=== PATIENT | male | born 1935 | race Caucasian/White ===

== ENCOUNTER 2017-06-28 09:51 | Emergency (ER) | payer MEDICARE ==
[~2017-06-28] VITALS: Ht 172.7 cm; Wt 79.4 kg
[~2017-06-28 09:51] MED LIST: LOSA50TA21 PO
--- NOTE | 2017-06-28 12:01 | NUR ---
pt was evaluated by dr yun. pt was d/c to home after er nd evaluation. d/c instructions given to the pt by dr ynu.
[2017-06-28 12:02] VITALS: BP 141/79
== END 2017-06-28 12:03 | disposition home or self-care (01) ==
LOC: ER 09:51
DX: S23.41XA Sprain of ribs, initial encounter (principal); I10 Essential (primary) hypertension; W18.39XA Other fall on same level, initial encounter; Y93.89 Activity, other specified; Y99.8 Other external cause status; Y92.89 Other specified places as the place of occurrence of the external cause
CPT/HCPCS: 74176; 99284; A4663

== ENCOUNTER 2017-11-25 16:05 | Emergency (ER) | payer MEDICARE ==
[~2017-11-25] VITALS: Ht 172.7 cm; Wt 80.7 kg
--- NOTE | 2017-11-25 17:14 | NUR ---
Pt c/o dry cough x 3 days, CP, "burning and pressure," started about 24 hours ago, hurts when coughing. Pt states he does get dizzy or SOB after exertion, but otherwise not. Pt denies SOB, dizziness, n/v, no other complaints, minimal distress noted. Pt placed on monitor, EKG -- given to .
[2017-11-25 17:35] LABS: BASOPHILS # (AUTO) 0.1 K/uL (0.0-8.0); BASOPHILS % (AUTO) 0.7 % (0.0-2.0); EOSINOPHILS # (AUTO) 0.2 K/uL (0.0-0.7); EOSINOPHILS % (AUTO) 2.5 % (0.0-7.0); HEMATOCRIT 40.3 % (36.7-47.1); HEMOGLOBIN 13.3 g/dL (12.5-16.3); LYMPHOCYTES # (AUTO) 1.7 K/uL (20.0-40.0); LYMPHOCYTES % (AUTO) 18.3 % (20.5-51.5); MEAN CORPUSCULAR HEMOGLOBIN 28.3 uug (23.8-33.4); MEAN CORPUSCULAR HGB CONC 33 g/dL (32.5-36.3); MEAN CORPUSCULAR VOLUME 85.9 fL (73.0-96.2); MONOCYTES # (AUTO) 1.3 K/uL (2.0-10.0); MONOCYTES % (AUTO) 13.9 % (0.0-11.0); NEUTROPHILS % (AUTO) 64.6 % (38.5-71.5); PLATELET COUNT (AUTO) 217 K/uL (152-348); RED BLOOD CELL COUNT(AUTO) 4.69 MIL/uL (4.06-5.63); WHITE BLOOD COUNT (AUTO) 9.4 K/uL (3.6-10.2)
[2017-11-25 17:43] LABS: CARBON DIOXIDE 28 mmol/L (21-32); CHLORIDE 98 mmol/L (98-107); GLUCOSE 105 mg/dL (74-106); POTASSIUM 4.4 mmol/L (3.5-5.1); UREA NITROGEN, BLOOD 10 mg/dL (7-18)
[2017-11-25 17:56] LABS: ALANINE AMINOTRANSFERASE 20 U/L (16-63); ALKALINE PHOSPHATASE 64 U/L (50-136); ASPARTATE AMINOTRANSFERASE 24 U/L (15-37); BILIRUBIN,DIRECT 0.1 mg/dL (0.0-0.2); BILIRUBIN,TOTAL 0.3 mg/dL (0.2-1.0); TOTAL PROTEIN, SERUM 7.8 g/dL (6.4-8.2)
--- NOTE | 2017-11-25 18:39 | NUR ---
Gave pt and son RX and d/c instructions, verbalized understanding.
[2017-11-25 18:43] VITALS: BP 158/97
== END 2017-11-25 18:44 | disposition home or self-care (01) ==
LOC: ER 16:07
DX: J20.9 Acute bronchitis, unspecified (principal); I10 Essential (primary) hypertension; I45.10 Unspecified right bundle-branch block; G47.30 Sleep apnea, unspecified
CPT/HCPCS: 36415; 70030-TC; 71045; 83605; 85025; 85730; 87040; 87400; 93005; A4663

== ENCOUNTER 2018-10-20 16:01 | Emergency (ER) | payer MEDICARE ==
[~2018-10-20] VITALS: Ht 172.7 cm; Wt 81.6 kg
[~2018-10-20 16:01] MED LIST changes: -LOSA50TA21 PO; +LOSA50TA39 PO
[2018-10-20] MEDS ORDERED: LET TOPICAL SOLUTION 8 ML UDC ONE (16:53)
[2018-10-20] MEDS ORDERED: LET TOPICAL SOLUTION 8 ML UDC TP ONE (17:00)
[2018-10-20] MEDS ORDERED: NEOMY/BACITRA/POLYMYXIN B OINT UD PACKET TP ONE ×2 (17:15→17:40)
[2018-10-20] MEDS ORDERED: ACETAMINOPHEN ES 500 MG TABLET ONE (17:41)
[2018-10-20] MEDS ORDERED: TDAP DIPH,PERTUSS,TET VAC/PF 0.5 ML DISP.SYRIN IM ONE ×2 (17:48→18:00)
--- NOTE | 2018-10-20 18:27 | NUR ---
Patient discharged to home in stable conditon. Written and verbal after care instructions given. Patient and pt's family verbalize understanding of instructions. Pt left ER accompained by family.
[2018-10-20 18:32] VITALS: BP 129/70
== END 2018-10-20 18:36 | disposition home or self-care (01) ==
LOC: ER 16:04
DX: S02.5XXA Fracture of tooth (traumatic), initial encounter for closed fracture (principal); S01.511A Laceration without foreign body of lip, initial encounter; S00.81XA Abrasion of other part of head, initial encounter; I10 Essential (primary) hypertension; G89.29 Other chronic pain; M25.559 Pain in unspecified hip; Z79.899 Other long term (current) drug therapy; W01.0XXA Fall on same level from slipping, tripping and stumbling without subsequent striking against object, initial encounter; Y93.89 Activity, other specified; Y92.89 Other specified places as the place of occurrence of the external cause; Y99.8 Other external cause status
CPT/HCPCS: 70450; 71101; 72125; 73521; 90715; A4217; A4663; A9150

== ENCOUNTER 2018-11-13 11:26 | Emergency (ER) | payer MEDICARE ==
[~2018-11-13] VITALS: Ht 167.6 cm; Wt 81.6 kg
--- NOTE | 2018-11-13 11:39 | NUR ---
pt walks in to er co coughing for 2 days, coarse voice this am and cp when coughing hard and deep. pt s/p fall on his [place] oct 20, seen and examined here in this er. pt son at bedside .
--- NOTE | 2018-11-13 13:10 | NUR ---
Patient discharged to home in stable conditon. Written and verbal after care instructions given. Patient verbalizes understanding of instructions.pt walks in steady gait, pt breathingnormally the whole er stay.
[2018-11-13 13:16] VITALS: BP 171/89
== END 2018-11-13 13:17 | disposition home or self-care (01) ==
LOC: ER 11:26
DX: J20.9 Acute bronchitis, unspecified (principal); J04.0 Acute laryngitis; R19.7 Diarrhea, unspecified; I10 Essential (primary) hypertension; Z79.899 Other long term (current) drug therapy
CPT/HCPCS: 71045; 93005; A4663

== ENCOUNTER 2019-07-10 14:16 | Emergency (ER) | payer MEDICARE, MEDICAID ==
[~2019-07-10] VITALS: Ht 175.3 cm; Wt 79.4 kg
--- NOTE | 2019-07-10 14:22 | NUR ---
PT IS A/OX4, BIB [id number], C/O MECHANICAL FALL AT A [id number]. PT STATES HE TRIPPED OVER A PARKING BLOCK AND LANDED FACE FIRST. PT DENIES LOC. PT PRESENTS W/ BLOOD ON THE UPPER LIP AND INSIDE THE UPPER LIP. UPON INSPECTION, MINOR LAC NOTED ON THE UPPER LIP WELL INSIDE THE UPPER LIP. NO ACTIVE BLEEDING INTO THE OROPHARYNX. VS WNL. PT DOES PRESENT W/ 3 BROKEN UPPER TEETH IN THE FRONT, BUT PT STATES HE'S HAD THOSE BROKEN TEETH. PT DENIES C/P, SOB, N/V/D, DIZZINESS, HEADACHE.
[2019-07-10] MEDS ORDERED: ASPIRIN PO (14:26)
[2019-07-10 14:57] LABS: BASOPHILS % (AUTO) 0.7 % (0.0-2.0); EOSINOPHILS # (AUTO) 0.2 K/uL (0.0-0.7); EOSINOPHILS % (AUTO) 2.1 % (0.0-7.0); HEMATOCRIT 40.1 % (36.7-47.1); HEMOGLOBIN 13.3 g/dL (12.5-16.3); LYMPHOCYTES # (AUTO) 1.9 K/uL (20.0-40.0); LYMPHOCYTES % (AUTO) 25.4 % (20.5-51.5); MEAN CORPUSCULAR HEMOGLOBIN 29.6 uug (23.8-33.4); MEAN CORPUSCULAR HGB CONC 33 g/dL (32.5-36.3); MEAN CORPUSCULAR VOLUME 89.2 fL (73.0-96.2); MONOCYTES # (AUTO) 0.6 K/uL (2.0-10.0); MONOCYTES % (AUTO) 8.5 % (0.0-11.0); NEUTROPHILS # (AUTO) 4.7 K/uL (1.8-8.9); NEUTROPHILS % (AUTO) 63.3 % (38.5-71.5); PLATELET COUNT (AUTO) 255 K/uL (152-348); WHITE BLOOD COUNT (AUTO) 7.5 K/uL (3.6-10.2)
[2019-07-10 15:07] LABS: POTASSIUM 4.4 mmol/L (3.5-5.1)
[2019-07-10] MEDS ORDERED: TDAP DIPH,PERTUSS,TET VAC/PF 0.5 ML DISP.SYRIN IM ONE ×2 (15:15→15:17)
[2019-07-10] MEDS ORDERED: ACETAMINOPHEN ES 500 MG TABLET PO ONE (15:15)
[2019-07-10] MEDS ORDERED: ACETAMINOPHEN ES 500 MG TABLET ONE (15:17)
[2019-07-10 15:18] LABS: BILIRUBIN,DIRECT 0.1 mg/dL (0.0-0.2); BILIRUBIN,TOTAL 0.3 mg/dL (0.2-1.0); TOTAL PROTEIN, SERUM 7.3 g/dL (6.4-8.2)
--- NOTE | 2019-07-10 17:11 | NUR ---
Patient discharged to home in stable conditon. Written and verbal after care instructions given. Patient verbalizes understanding of instructions.
== END 2019-07-10 17:12 | disposition home or self-care (01) ==
LOC: ER 14:16
DX: S01.81XA Laceration without foreign body of other part of head, initial encounter (principal); S01.511A Laceration without foreign body of lip, initial encounter; I10 Essential (primary) hypertension; Z79.82 Long term (current) use of aspirin; Z79.899 Other long term (current) drug therapy; W01.198A Fall on same level from slipping, tripping and stumbling with subsequent striking against other object, initial encounter; Y93.89 Activity, other specified; Y92.89 Other specified places as the place of occurrence of the external cause; Y99.8 Other external cause status
CPT/HCPCS: 36415; 70450; 70486; 85025; 90715; 93005; A4663; A9150

== ENCOUNTER 2019-07-22 12:30 | Inpatient (IN) | payer MEDICARE, MEDICAID ==
[~2019-07-22] VITALS: Ht 172.7 cm; Wt 80.5 kg
[~2019-07-22 12:30] MED LIST changes: +ASPIRIN PO
[2019-07-22] MEDS ORDERED: [UNRECOGNIZED DRUG - OTHER] PO (12:55)
[2019-07-22] MEDS ORDERED: BETA1TAB19 PO (12:55)
[2019-07-22] MEDS ORDERED: OMEG-162 PO (12:55)
[2019-07-22] MEDS ORDERED: MULT1TAB73 PO (12:55)
[2019-07-22] MEDS ORDERED: SAW500CA2 PO (12:55)
[2019-07-22] MEDS ORDERED: TUMERIC COMPLEX PO (12:55)
[2019-07-22] MEDS ORDERED: GLUC-244 PO (12:55)
[2019-07-22] MEDS ORDERED: ASPI81TA31 PO (12:55)
[2019-07-22] MEDS ORDERED: LACT1TAB13 PO (12:55)
[2019-07-22 13:03] LABS: BASOPHILS # (AUTO) 0.1 K/uL (0.0-8.0); BASOPHILS % (AUTO) 0.7 % (0.0-2.0); EOSINOPHILS # (AUTO) 0.1 K/uL (0.0-0.7); EOSINOPHILS % (AUTO) 0.5 % (0.0-7.0); HEMATOCRIT 34.3 % (36.7-47.1); HEMOGLOBIN 11.3 g/dL (12.5-16.3); LYMPHOCYTES # (AUTO) 1.8 K/uL (20.0-40.0); MEAN CORPUSCULAR HEMOGLOBIN 29.4 uug (23.8-33.4); MEAN CORPUSCULAR HGB CONC 33 g/dL (32.5-36.3); MEAN CORPUSCULAR VOLUME 89.3 fL (73.0-96.2); MONOCYTES # (AUTO) 0.9 K/uL (2.0-10.0); MONOCYTES % (AUTO) 6.5 % (0.0-11.0); NEUTROPHILS # (AUTO) 10.7 K/uL (1.8-8.9); NEUTROPHILS % (AUTO) 79.3 % (38.5-71.5); PLATELET COUNT (AUTO) 278 K/uL (152-348); RED BLOOD CELL COUNT(AUTO) 3.85 MIL/uL (4.06-5.63); WHITE BLOOD COUNT (AUTO) 13.5 K/uL (3.6-10.2)
[2019-07-22 13:11] LABS: CARBON DIOXIDE 25 mmol/L (21-32); CHLORIDE 102 mmol/L (98-107); CREATININE 1.3 mg/dL (0.6-1.3); GLUCOSE 116 mg/dL (74-106); POTASSIUM 4.1 mmol/L (3.5-5.1); UREA NITROGEN, BLOOD 26 mg/dL (7-18)
[2019-07-22 13:16] LABS: ALANINE AMINOTRANSFERASE 17 U/L (16-63); ALKALINE PHOSPHATASE 55 U/L (50-136); ASPARTATE AMINOTRANSFERASE 17 U/L (15-37); BILIRUBIN,DIRECT 0.1 mg/dL (0.0-0.2); BILIRUBIN,TOTAL 0.2 mg/dL (0.2-1.0); TOTAL PROTEIN, SERUM 6.7 g/dL (6.4-8.2)
[2019-07-22] MEDS ORDERED: Z GUARD REMEDY PASTE 57 GM TUBE TOP PRN (15:30)
[2019-07-22] MEDS ORDERED: ONDANSETRON 4 MG/2 ML VIAL IV PRN (15:30)
[2019-07-22] MEDS ORDERED: MAGNESIUM HYDROXIDE 30 ML LIQUID UDC PO PRN (15:30)
[2019-07-22] MEDS ORDERED: ACETAMINOPHEN 325 MG TABLET PO PRN (15:30)
[2019-07-22] MEDS ORDERED: LEVOFLOXACIN 500 MG/D5W 500 MG in PREMIXED 1 EACH IV ONE (16:00)
[2019-07-22 16:51] VITALS: BP 123/74
[2019-07-22] MEDS: PANTOPRAZOLE SODIUM 40 MG VIAL IV SCH (18:31)
[2019-07-22] MEDS: IV NS 1000 ML 1,000 ML IV PRN (18:31)
[2019-07-22 20:00] VITALS: BP 139/78
[2019-07-22] MEDS: METRONIDAZOLE 500 MG/NS 100ML 500 MG in PREMIXED 1 EACH IV SCH (21:13)
[2019-07-22 21:55] LABS: *BILIRUBIN,URIN 1+ (NEGATIVE); *BLOOD, URINE NEGATIVE (NEGATIVE); *CLARITY,URINE CLEAR (CLEAR); *COLOR,URINE DARK YELLOW (YELLOW); *KETONES,URINE 1+ (NEGATIVE); *UROBILINOGEN,URINE 0.2 E.U./dl (NORMAL); LEUKOCYTE ESTERASE ,URINE NEGATIVE (NEGATIVE); NITRITE, URINE NEGATIVE (NEGATIVE); PH,URINE 5.5 (5.0-8.0); UGLUCOSE NEGATIVE (NEGATIVE)
[2019-07-22 22:15] LABS: MUCUS,URINE MANY /LPF (0-FEW); SQUAMOUS EPITHELIAL CELL,UR FEW /HPF (NONE SEEN); WBC,URINE 0-3 /HPF (0-3)
[2019-07-23] VITALS (8 sets, daily range): BP systolic 109–156; BP diastolic 62–78
[2019-07-23] MEDS: METRONIDAZOLE 500 MG/NS 100ML 500 MG in PREMIXED 1 EACH IV SCH ×3 (05:08→21:16)
[2019-07-23 07:08] LABS: BASOPHILS # (AUTO) 0.1 K/uL (0.0-8.0); BASOPHILS % (AUTO) 0.4 % (0.0-2.0); EOSINOPHILS # (AUTO) 0.2 K/uL (0.0-0.7); EOSINOPHILS % (AUTO) 1.4 % (0.0-7.0); HEMATOCRIT 26.8 % (36.7-47.1); HEMOGLOBIN 8.8 g/dL (12.5-16.3); LYMPHOCYTES % (AUTO) 31.4 % (20.5-51.5); MEAN CORPUSCULAR HEMOGLOBIN 29.1 uug (23.8-33.4); MEAN CORPUSCULAR HGB CONC 33 g/dL (32.5-36.3); MEAN CORPUSCULAR VOLUME 88.2 fL (73.0-96.2); MONOCYTES % (AUTO) 7.8 % (0.0-11.0); NEUTROPHILS # (AUTO) 7.5 K/uL (1.8-8.9); PLATELET COUNT (AUTO) 261 K/uL (152-348); RED BLOOD CELL COUNT(AUTO) 3.04 MIL/uL (4.06-5.63); WHITE BLOOD COUNT (AUTO) 12.7 K/uL (3.6-10.2)
[2019-07-23 07:20] LABS: CARBON DIOXIDE 26 mmol/L (21-32); CHLORIDE 105 mmol/L (98-107); CHOLESTEROL 156 mg/dL (<200); CREATININE 1.4 mg/dL (0.6-1.3); GLUCOSE 122 mg/dL (74-106); HDL CHOLESTEROL 31 mg/dL (40-60); MAGNESIUM 1.9 mg/dL (1.8-2.4); PHOSPHOROUS 2.8 mg/dL (2.5-4.9); POTASSIUM 4.4 mmol/L (3.5-5.1); TRIGLYCERIDES 120 MG/DL (30-150); UREA NITROGEN, BLOOD 35 mg/dL (7-18)
[2019-07-23 07:35] LABS: THYROID STIMULATING HORMONE 5.321 mIU/mL (0.358-3.740)
[2019-07-23] MEDS ORDERED: BORON PO SCH (09:00)
[2019-07-23] MEDS ORDERED: [UNRECOGNIZED DRUG - OTHER] PO SCH (09:00)
[2019-07-23] MEDS: OMEGA-3 FATTY ACIDS/FISH OIL CAPSULE PO SCH (09:00)
[2019-07-23] MEDS ORDERED: Medication Not On Formulary EA (Multivitamins (Multivitamin) 1 EACH) PO SCH (09:00)
[2019-07-23] MEDS ORDERED: Medication Not On Formulary EA (Lactobacillus Acidophilus (Acidophilus) 1 EACH) PO SCH (09:00)
[2019-07-23] MEDS ORDERED: GLUCOSAM PO SCH (09:00)
[2019-07-23] MEDS ORDERED: Medication Not On Formulary EA (Omega-3/Dha/Epa/Fish Oil (Fish Oil 1,000 Mg Softgel) 1 E PO SCH (09:00)
[2019-07-23] MEDS: ACIDOPHILUS/BULGARICUS CHEW TAB PO SCH (09:00)
[2019-07-23] MEDS: MULTIVITAMINS,THERAPEUTIC TABLET PO SCH (09:00)
[2019-07-23] MEDS ORDERED: CHOND PO SCH (09:00)
[2019-07-23] MEDS ORDERED: MSM PO SCH (09:00)
[2019-07-23] MEDS: PANTOPRAZOLE SODIUM 40 MG VIAL IV SCH ×2 (09:18→17:26)
[2019-07-23] MEDS ORDERED: CEFAZOLIN 1 G VIAL IM ONE (11:19)
[2019-07-23] MEDS ORDERED: LIDOCAINE-MPF 2% 5 ML VIAL IJ ONE (11:19)
[2019-07-23] MEDS ORDERED: PROPOFOL 200 MG/20 ML BOTTLE IV ONE (11:19)
[2019-07-23] MEDS ORDERED: FENTANYL CITRATE 100 MCG/2 ML AMPUL ONE (11:34)
[2019-07-23] MEDS: IV NS 1000 ML 1,000 ML IV PRN (14:29)
[2019-07-23] MEDS ORDERED: GOLYTELY 4000 ML BOTTLE PO ONE (15:15)
[2019-07-23] MEDS ORDERED: FLEET ENEMA 133 ML BOTTLE RC ONE (15:15)
[2019-07-23] MEDS ORDERED: MAGNESIUM CITRATE 296 ML BOTTLE PO ONE (15:15)
[2019-07-23 16:23] LABS: IRON, SERUM 95 ug/dL (50-175)
[2019-07-23 16:46] LABS: FERRITIN 25 ng/mL (26-388)
[2019-07-23] MEDS: LEVOFLOXACIN 250MG /D5W 50 ML IV SCH (17:26)
[2019-07-23] MEDS: LORAZEPAM 2 MG/1 ML VIAL IV PRN (21:17)
[2019-07-24] VITALS (8 sets, daily range): BP systolic 115–163; BP diastolic 64–89
[2019-07-24] MEDS: METRONIDAZOLE 500 MG/NS 100ML 500 MG in PREMIXED 1 EACH IV SCH ×3 (05:57→21:39)
[2019-07-24 06:46] LABS: BASOPHILS % (AUTO) 0.3 % (0.0-2.0); EOSINOPHILS # (AUTO) 0.1 K/uL (0.0-0.7); EOSINOPHILS % (AUTO) 0.9 % (0.0-7.0); LYMPHOCYTES # (AUTO) 1.7 K/uL (20.0-40.0); MEAN CORPUSCULAR HEMOGLOBIN 29.1 uug (23.8-33.4); MEAN CORPUSCULAR HGB CONC 33 g/dL (32.5-36.3); MEAN CORPUSCULAR VOLUME 89.8 fL (73.0-96.2); MONOCYTES # (AUTO) 0.9 K/uL (2.0-10.0); MONOCYTES % (AUTO) 10.4 % (0.0-11.0); NEUTROPHILS # (AUTO) 6.1 K/uL (1.8-8.9); NEUTROPHILS % (AUTO) 69.4 % (38.5-71.5); PLATELET COUNT (AUTO) 228 K/uL (152-348)
[2019-07-24 06:50] LABS: CARBON DIOXIDE 27 mmol/L (21-32); CHLORIDE 107 mmol/L (98-107); CREATININE 1.2 mg/dL (0.6-1.3); GLUCOSE 116 mg/dL (74-106); PHOSPHOROUS 2.5 mg/dL (2.5-4.9); POTASSIUM 4.2 mmol/L (3.5-5.1); UREA NITROGEN, BLOOD 37 mg/dL (7-18)
[2019-07-24 06:57] LABS: RED BLOOD CELL COUNT(AUTO) 2.49 MIL/uL (4.06-5.63)
[2019-07-24 06:58] LABS: WHITE BLOOD COUNT (AUTO) 8.8 K/uL (3.6-10.2)
[2019-07-24 07:03] LABS: HEMOGLOBIN 7.3 g/dL (12.5-16.3)
[2019-07-24 07:05] LABS: HEMATOCRIT 22.3 % (36.7-47.1)
[2019-07-24] MEDS: MULTIVITAMINS,THERAPEUTIC TABLET PO SCH (09:00)
[2019-07-24] MEDS: OMEGA-3 FATTY ACIDS/FISH OIL CAPSULE PO SCH (09:00)
[2019-07-24] MEDS: ACIDOPHILUS/BULGARICUS CHEW TAB PO SCH (09:00)
[2019-07-24] MEDS: PANTOPRAZOLE SODIUM 40 MG VIAL IV SCH ×2 (09:21→17:14)
[2019-07-24] MEDS: LEVOFLOXACIN 250MG /D5W 50 ML IV SCH (16:04)
[2019-07-24] MEDS ORDERED: GOLYTELY 4000 ML BOTTLE PO ONE (16:45)
[2019-07-24] MEDS ORDERED: IOHEXOL 300MG/ML 100 ML INFUS..BTL ONE (17:28)
[2019-07-24] MEDS ORDERED: SWABABLE VALVE TRANSFER SET EA MC ONE (17:28)
[2019-07-24] MEDS ORDERED: IV NORMAL SALINE 250 ML IV ONE (17:28)
[2019-07-24] MEDS: IV NS 1000 ML 1,000 ML IV PRN (18:05)
[2019-07-25] VITALS (7 sets, daily range): BP systolic 112–180; BP diastolic 59–98
[2019-07-25] MEDS: METRONIDAZOLE 500 MG/NS 100ML 500 MG in PREMIXED 1 EACH IV SCH ×3 (05:36→22:11)
[2019-07-25 06:22] LABS: BASOPHILS # (AUTO) 0.1 K/uL (0.0-8.0); BASOPHILS % (AUTO) 0.8 % (0.0-2.0); EOSINOPHILS # (AUTO) 0.2 K/uL (0.0-0.7); EOSINOPHILS % (AUTO) 2.4 % (0.0-7.0); HEMATOCRIT 23.2 % (36.7-47.1); LYMPHOCYTES # (AUTO) 1.5 K/uL (20.0-40.0); LYMPHOCYTES % (AUTO) 22.3 % (20.5-51.5); MEAN CORPUSCULAR HEMOGLOBIN 30.5 uug (23.8-33.4); MEAN CORPUSCULAR HGB CONC 35 g/dL (32.5-36.3); MEAN CORPUSCULAR VOLUME 88.4 fL (73.0-96.2); MONOCYTES # (AUTO) 0.7 K/uL (2.0-10.0); MONOCYTES % (AUTO) 10.8 % (0.0-11.0); NEUTROPHILS # (AUTO) 4.4 K/uL (1.8-8.9); NEUTROPHILS % (AUTO) 63.7 % (38.5-71.5); PLATELET COUNT (AUTO) 204 K/uL (152-348); RED BLOOD CELL COUNT(AUTO) 2.62 MIL/uL (4.06-5.63); WHITE BLOOD COUNT (AUTO) 6.8 K/uL (3.6-10.2)
[2019-07-25 06:37] LABS: CREATININE 0.8 mg/dL (0.6-1.3); MAGNESIUM 1.5 mg/dL (1.8-2.4); PHOSPHOROUS 1.8 mg/dL (2.5-4.9); POTASSIUM 3.6 mmol/L (3.5-5.1)
[2019-07-25] MEDS ORDERED: NEUTRA PHOS PACKET PO ONE (08:00)
[2019-07-25] MEDS: MULTIVITAMINS,THERAPEUTIC TABLET PO SCH (09:00)
[2019-07-25] MEDS: ACIDOPHILUS/BULGARICUS CHEW TAB PO SCH (09:00)
[2019-07-25] MEDS: OMEGA-3 FATTY ACIDS/FISH OIL CAPSULE PO SCH (09:00)
[2019-07-25] MEDS: MAGNESIUM SULFATE/D5W 100 ML IV SCH ×3 (09:14→13:35)
[2019-07-25] MEDS: PANTOPRAZOLE SODIUM 40 MG VIAL IV SCH ×2 (09:14→17:56)
[2019-07-25] MEDS: IV NS 1000 ML 1,000 ML IV PRN ×2 (10:21→23:08)
[2019-07-25] MEDS ORDERED: LIDOCAINE-MPF 2% 5 ML VIAL IJ ONE (12:59)
[2019-07-25] MEDS ORDERED: SIMETHICONE 40 MG/0.6 ML, 30ML BOTTLE MC ONE (12:59)
[2019-07-25] MEDS ORDERED: ETOMIDATE 20 MG/10 ML VIAL IV ONE (12:59)
[2019-07-25] MEDS ORDERED: IRR STERIL WATER FOR IRR 1000 ML BOTTLE IR ONE (12:59)
[2019-07-25] MEDS ORDERED: STERILE WATER FOR INJ IV ONE (12:59)
[2019-07-25] MEDS ORDERED: IV NORMAL SALINE 1000 ML BAG IV ONE (12:59)
[2019-07-25] MEDS ORDERED: CLONIDINE HCL 0.1 MG TABLET PO PRN (18:15)
[2019-07-25] MEDS: LEVOFLOXACIN 250MG /D5W 50 ML IV SCH (20:17)
[2019-07-25] MEDS: LORAZEPAM 2 MG/1 ML VIAL IV PRN (20:39)
[2019-07-26] VITALS (14 sets, daily range): BP systolic 118–155; BP diastolic 61–86
[2019-07-26] MEDS: METRONIDAZOLE 500 MG/NS 100ML 500 MG in PREMIXED 1 EACH IV SCH ×2 (05:34→12:47)
[2019-07-26 06:08] LABS: BASOPHILS % (AUTO) 0.6 % (0.0-2.0); EOSINOPHILS # (AUTO) 0.2 K/uL (0.0-0.7); EOSINOPHILS % (AUTO) 2.8 % (0.0-7.0); HEMATOCRIT 22.8 % (36.7-47.1); HEMOGLOBIN 7.8 g/dL (12.5-16.3); LYMPHOCYTES # (AUTO) 1.3 K/uL (20.0-40.0); LYMPHOCYTES % (AUTO) 18.9 % (20.5-51.5); MEAN CORPUSCULAR HEMOGLOBIN 30.8 uug (23.8-33.4); MEAN CORPUSCULAR HGB CONC 34 g/dL (32.5-36.3); MEAN CORPUSCULAR VOLUME 90.3 fL (73.0-96.2); MONOCYTES # (AUTO) 0.8 K/uL (2.0-10.0); MONOCYTES % (AUTO) 11.1 % (0.0-11.0); NEUTROPHILS # (AUTO) 4.5 K/uL (1.8-8.9); NEUTROPHILS % (AUTO) 66.6 % (38.5-71.5); PLATELET COUNT (AUTO) 222 K/uL (152-348); RED BLOOD CELL COUNT(AUTO) 2.52 MIL/uL (4.06-5.63); WHITE BLOOD COUNT (AUTO) 6.8 K/uL (3.6-10.2)
[2019-07-26 06:09] LABS: CREATININE 0.8 mg/dL (0.6-1.3); MAGNESIUM 1.8 mg/dL (1.8-2.4); PHOSPHOROUS 2.6 mg/dL (2.5-4.9); POTASSIUM 3.4 mmol/L (3.5-5.1)
[2019-07-26] MEDS: OMEGA-3 FATTY ACIDS/FISH OIL CAPSULE PO SCH (08:38)
[2019-07-26] MEDS: MULTIVITAMINS,THERAPEUTIC TABLET PO SCH (08:38)
[2019-07-26] MEDS: PANTOPRAZOLE SODIUM 40 MG VIAL IV SCH ×2 (08:38→17:22)
[2019-07-26] MEDS: ACIDOPHILUS/BULGARICUS CHEW TAB PO SCH (08:39)
[2019-07-26] MEDS ORDERED: POTASSIUM CHLORIDE 20 MEQ TAB.PRT.SR PO ONE (14:00)
[2019-07-26] MEDS: LEVOFLOXACIN 250MG /D5W 50 ML IV SCH (15:24)
[2019-07-26] MEDS: IV NS 1000 ML 1,000 ML IV PRN (15:25)
[2019-07-26] MEDS: BENZOCAINE/MENTH/CETYLPYRD LOZENGE MM PRN (21:33)
[2019-07-27] MEDS: METRONIDAZOLE 500 MG/NS 100ML 500 MG in PREMIXED 1 EACH IV SCH ×2 (00:52→05:21)
[2019-07-27 05:41] VITALS: BP 139/78
[2019-07-27] MEDS ORDERED: PANTOPRAZOLE SODIUM 40 MG TABLET.DR PO SCH (07:00)
[2019-07-27 07:29] VITALS: BP 140/74
[2019-07-27 07:32] LABS: CREATININE 0.8 mg/dL (0.6-1.3); MAGNESIUM 1.6 mg/dL (1.8-2.4); PHOSPHOROUS 2.6 mg/dL (2.5-4.9); POTASSIUM 3.4 mmol/L (3.5-5.1)
[2019-07-27 07:55] LABS: EOSINOPHILS # (AUTO) 0.4 K/uL (0.0-0.7); MEAN CORPUSCULAR VOLUME 91.3 fL (73.0-96.2); MONOCYTES # (AUTO) 0.8 K/uL (2.0-10.0); MONOCYTES % (AUTO) 10.1 % (0.0-11.0); WHITE BLOOD COUNT (AUTO) 8.1 K/uL (3.6-10.2)
[2019-07-27 08:07] LABS: BASOPHILS % (AUTO) 0.5 % (0.0-2.0); EOSINOPHILS % (AUTO) 4.4 % (0.0-7.0); LYMPHOCYTES # (AUTO) 1.6 K/uL (20.0-40.0); LYMPHOCYTES % (AUTO) 19.1 % (20.5-51.5); MEAN CORPUSCULAR HEMOGLOBIN 31.2 uug (23.8-33.4); MEAN CORPUSCULAR HGB CONC 34 g/dL (32.5-36.3); NEUTROPHILS # (AUTO) 5.4 K/uL (1.8-8.9); NEUTROPHILS % (AUTO) 65.9 % (38.5-71.5); PLATELET COUNT (AUTO) 249 K/uL (152-348); RED BLOOD CELL COUNT(AUTO) 2.98 MIL/uL (4.06-5.63)
[2019-07-27 08:08] LABS: HEMATOCRIT 27.2 % (36.7-47.1); HEMOGLOBIN 9.3 g/dL (12.5-16.3)
[2019-07-27] MEDS ORDERED: POTASSIUM CHLORIDE 50 ML IV SCH (08:15)
[2019-07-27] MEDS: PANTOPRAZOLE SODIUM 40 MG VIAL IV SCH (09:16)
[2019-07-27] MEDS: MULTIVITAMINS,THERAPEUTIC TABLET PO SCH (09:16)
[2019-07-27] MEDS: ACIDOPHILUS/BULGARICUS CHEW TAB PO SCH (09:16)
[2019-07-27] MEDS: OMEGA-3 FATTY ACIDS/FISH OIL CAPSULE PO SCH (09:16)
[2019-07-27] MEDS ORDERED: LEVO750T21 PO (09:54)
[2019-07-27] MEDS ORDERED: METR500T PO (09:54)
[2019-07-27] MEDS ORDERED: PANT40TA2 PO (09:54)
[2019-07-27] MEDS ORDERED: BISACODYL 10 MG SUPP.RECT RC PRN (10:00)
[2019-07-27] MEDS ORDERED: MAGNESIUM HYDROXIDE 30 ML LIQUID UDC PO PRN (10:00)
[2019-07-27 10:06] LABS: *IMMUNOGLOBULIN G, SERUM 822 mg/dL (700-1600); IMMUNOGLOBULIN A, SERUM 290 mg/dL (61-437); IMMUNOGLOBULIN M, SERUM 22 mg/dL (15-143)
[2019-07-27] MEDS: BENZOCAINE/MENTH/CETYLPYRD LOZENGE MM PRN (10:29)
[2019-07-27] MEDS: MAGNESIUM SULFATE/D5W 100 ML IV SCH ×2 (10:59→12:27)
[2019-07-27 13:11] VITALS: BP 148/80
[2019-07-29 05:07] LABS: ALBUMIN 2.6 g/dL (2.9-4.4); ALPHA-1-GLOBULIN 0.3 g/dL (0.0-0.4); ALPHA-2-GLOBULIN 0.6 g/dL (0.4-1.0); BETA GLOBULIN 0.8 g/dL (0.7-1.3); GAMMA GLOBULIN 0.8 g/dL (0.4-1.8); GLOBULIN, TOTAL 2.5 g/dL (2.2-3.9); M-SPIKE Not Observed g/dL (Not Observed)
== END 2019-07-27 13:00 | disposition home or self-care (01) | DRG 377 ==
LOC: ER 12:30 → TELE3 15:33 → MEDSURG3 07-23 17:57 → TELE3 07-25 17:28 → MEDSURG3 07-26 23:53
PROVIDERS: ADMIT Registered Nurse; ATTEND Registered Nurse
PROC: 0DJD8ZZ Inspection of Lower Intestinal Tract, Via Natural or Artificial Opening Endoscopic (ICD-10-PCS; 2019-07-22)
PROC: 0DB68ZX Excision of Stomach, Via Natural or Artificial Opening Endoscopic, Diagnostic (ICD-10-PCS; principal; 2019-07-23)
PROC: 30233N1 Transfusion of Nonautologous Red Blood Cells into Peripheral Vein, Percutaneous Approach (ICD-10-PCS; 2019-07-24)
DX: K57.31 Diverticulosis of large intestine without perforation or abscess with bleeding (principal); J69.0 Pneumonitis due to inhalation of food and vomit; N17.9 Acute kidney failure, unspecified; D62 Acute posthemorrhagic anemia; C64.1 Malignant neoplasm of right kidney, except renal pelvis; K92.2 Gastrointestinal hemorrhage, unspecified; K43.9 Ventral hernia without obstruction or gangrene; E86.0 Dehydration; K29.70 Gastritis, unspecified, without bleeding; K44.9 Diaphragmatic hernia without obstruction or gangrene; I71.4 Abdominal aortic aneurysm, without rupture; G89.29 Other chronic pain; D64.9 Anemia, unspecified; I11.9 Hypertensive heart disease without heart failure; K59.00 Constipation, unspecified; K64.8 Other hemorrhoids; K64.4 Residual hemorrhoidal skin tags; I70.0 Atherosclerosis of aorta; G47.30 Sleep apnea, unspecified; F03.90 Unspecified dementia, unspecified severity, without behavioral disturbance, psychotic disturbance, mood disturbance, and anxiety; Z79.82 Long term (current) use of aspirin; N28.89 Other specified disorders of kidney and ureter
CPT/HCPCS: 36415; 71045; 76770; 78278; 82784; 83550; 83615; 83735; 84100; 84155; 84165; 84443; 85025; 85730; 86334; 86850; 86900; 86901; 86920; 87086; 88342; 93005; A4217; A4663; A9560; C9113; G0378; J0690; J1956; J2060; J3010; J3475; J3480; J3490; J7030; J7040; J7050; P9016-BL; P9021; Q9967

== ENCOUNTER 2019-12-21 11:04 | Emergency (ER) | payer MEDICARE, OTHER ==
[~2019-12-21] VITALS: Ht 175.3 cm; Wt 83.0 kg
[2019-12-21] MEDS ORDERED: IV NORMAL SALINE 1000 ML BAG IV ONE (12:15)
[2019-12-21 12:29] LABS: BASOPHILS % (AUTO) 0.7 % (0.0-2.0); EOSINOPHILS # (AUTO) 0.2 K/uL (0.0-0.7); EOSINOPHILS % (AUTO) 2.3 % (0.0-7.0); HEMATOCRIT 41.3 % (36.7-47.1); HEMOGLOBIN 13.7 g/dL (12.5-16.3); LYMPHOCYTES # (AUTO) 1.4 K/uL (20.0-40.0); LYMPHOCYTES % (AUTO) 19.8 % (20.5-51.5); MEAN CORPUSCULAR HEMOGLOBIN 28.1 uug (23.8-33.4); MEAN CORPUSCULAR HGB CONC 33 g/dL (32.5-36.3); MEAN CORPUSCULAR VOLUME 84.8 fL (73.0-96.2); MONOCYTES # (AUTO) 0.7 K/uL (2.0-10.0); MONOCYTES % (AUTO) 10.3 % (0.0-11.0); NEUTROPHILS # (AUTO) 4.7 K/uL (1.8-8.9); NEUTROPHILS % (AUTO) 66.9 % (38.5-71.5); PLATELET COUNT (AUTO) 225 K/uL (152-348); RED BLOOD CELL COUNT(AUTO) 4.87 MIL/uL (4.06-5.63); WHITE BLOOD COUNT (AUTO) 7.1 K/uL (3.6-10.2)
[2019-12-21 12:33] LABS: CREATININE 1.1 mg/dL (0.6-1.3); POTASSIUM 4.2 mmol/L (3.5-5.1)
--- NOTE | 2019-12-21 12:38 | NUR ---
Patient is resting comfortably in bed with eyes closed, NAD noted.
[2019-12-21 12:40] LABS: BILIRUBIN,DIRECT 0.1 mg/dL (0.0-0.2); BILIRUBIN,TOTAL 0.4 mg/dL (0.2-1.0); TOTAL PROTEIN, SERUM 7.4 g/dL (6.4-8.2)
--- NOTE | 2019-12-21 13:02 | NUR ---
Erwin Mendez apoke to pt's daughter Shruthi regarding pt's discharge. ETA 1-2 hours.
[2019-12-21 14:16] VITALS: BP 153/90
--- NOTE | 2019-12-21 14:18 | NUR ---
Patient discharged to home in stable conditon. Written and verbal after care instructions given. Patient and Pt's daughter(Steffany) verbalize understanding of instructions. Pt assissted with wheelchair to daughters' car.
== END 2019-12-21 14:22 | disposition home or self-care (01) ==
LOC: ER 11:04
DX: Z00.00 Encounter for general adult medical examination without abnormal findings (principal); R53.1 Weakness; I10 Essential (primary) hypertension; G89.29 Other chronic pain; M54.9 Dorsalgia, unspecified; Z79.2 Long term (current) use of antibiotics; Z79.899 Other long term (current) drug therapy
CPT/HCPCS: 36415; 70030-TC; 71045; 83690; 85025; 85730; 93005; A4663; J7030